=== PATIENT | female | born 1960 | race Two or more races ===

== ENCOUNTER 2021-05-12 14:29 | Emergency (ER) | payer OTHER ==
[~2021-05-12] VITALS: Ht 165.1 cm; Wt 63.6 kg
[~2021-05-12 14:29] MED LIST: LIDOcaine 1% W/epiNEPHrine 1:100,000 20ml vial ONE
[2021-05-12] MEDS ORDERED: ketorolac tromethamine 15mg/ml inj. IM ONE (18:10)
[2021-05-12 19:08] VITALS: BP 133/74
== END 2021-05-12 20:05 | disposition home or self-care (01) ==
LOC: ER 14:30
DX: S52.571A Other intraarticular fracture of lower end of right radius, initial encounter for closed fracture (principal); S00.11XA Contusion of right eyelid and periocular area, initial encounter; Z88.0 Allergy status to penicillin; W11.XXXA Fall on and from ladder, initial encounter; Z91.81 History of falling; Y93.H2 Activity, gardening and landscaping; Y92.007 Garden or yard of unspecified non-institutional (private) residence as the place of occurrence of the external cause; Y99.8 Other external cause status
CPT/HCPCS: 25605; 70450; 72125; 73110; 96372; 99285; J1885

== ENCOUNTER 2021-09-09 14:14 | Emergency (ER) | payer MEDICAID ==
[~2021-09-09] VITALS: Ht 165.1 cm; Wt 61.4 kg
[~2021-09-09 14:14] MED LIST changes: +LIDOcaine 1% 30ml preserv. free vial ONE; -LIDOcaine 1% W/epiNEPHrine 1:100,000 20ml vial ONE
--- NOTE | 2021-09-09 14:45 | NUR ---
police report filed case no [id number].
[2021-09-09] MEDS ORDERED: BUPIVAcaine 0.5% inj/PF 30 ml vial IV ONE (16:15)
[2021-09-09] MEDS ORDERED: ketorolac tromethamine 15mg/ml inj. IM ONE (16:25)
--- NOTE | 2021-09-09 16:45 | NUR ---
[place] form signed by pt.
[2021-09-09 17:42] VITALS: BP 136/67
== END 2021-09-09 17:57 | disposition home or self-care (01) ==
LOC: ER 14:15
DX: S52.511A Displaced fracture of right radial styloid process, initial encounter for closed fracture (principal); S52.512A Displaced fracture of left radial styloid process, initial encounter for closed fracture; M25.531 Pain in right wrist; Z88.0 Allergy status to penicillin; V87.7XXA Person injured in collision between other specified motor vehicles (traffic), initial encounter; Y93.89 Activity, other specified; Y92.89 Other specified places as the place of occurrence of the external cause; Y99.8 Other external cause status
CPT/HCPCS: 25605; 73100; 73110; 96372; 99284; J1885; J2001